=== PATIENT | male | born 1980 | race African-American/Black ===

== ENCOUNTER 2017-01-14 05:21 | Emergency (ER) | payer OTHER ==
[~2017-01-14] VITALS: Ht 177.8 cm; Wt 65.8 kg
--- NOTE | 2017-01-14 05:22 | NUR ---
to bed 2 bib paramedics c/o anxiety. n/v after smoking marijuana 40min [employer] vessel [employer]. pt appears very anxious, hyperventilating. pt [id number] no acute distress noted, resp even and unlabored. pending er md avitia.
--- NOTE | 2017-01-14 05:51 | NUR ---
noted pt vomiting, hyperventilating, very anxious. er md made aware with orders received. will medicate pt as ordered.
[2017-01-14] MEDS ORDERED: LORAZEPAM INJ 2 MG/ML VIAL ONE (05:52)
--- NOTE | 2017-01-14 05:56 | NUR ---
pt medicated by rn per er md order.
[2017-01-14] MEDS ORDERED: LORAZEPAM INJ 2 MG/ML VIAL IM ONE (06:00)
[2017-01-14] MEDS ORDERED: ONDANSETRON HCL/PF 4 MG/2 ML VIAL ONE (06:16)
--- NOTE | 2017-01-14 06:19 | NUR ---
pt ambulatory to the bathroom with steady gait noted.
[2017-01-14] MEDS ORDERED: ONDANSETRON HCL/PF 4 MG/2 ML VIAL IM ONE (06:30)
[2017-01-14] MEDS ORDERED: MAG HYDROX/AL HYDROX/SIMETH 30 ML UDC PO ONE (06:30)
--- NOTE | 2017-01-14 06:56 | NUR ---
report given to am shift jodie don.
--- NOTE | 2017-01-14 06:57 | NUR ---
REPORT RECEIVED FROM ED FOR RAMAN
[2017-01-14] MEDS ORDERED: MAG HYDROX/AL HYDROX/SIMETH 30 ML UDC ONE (07:08)
[2017-01-14] MEDS ORDERED: LORAZEPAM 1 MG TABLET ONE (07:35)
--- NOTE | 2017-01-14 07:56 | NUR ---
Patient discharged to home in stable condition. Written and verbal after care instructions given. Patient verbalizes understanding of instruction.
[2017-01-14 07:57] VITALS: BP 122/66
[2017-01-14] MEDS ORDERED: LORAZEPAM 1 MG TABLET PO ONE (08:00)
== END 2017-01-14 07:58 | disposition home or self-care (01) ==
LOC: ER 05:23
DX: F41.9 Anxiety disorder, unspecified (principal)
CPT/HCPCS: A4606; J2060; J2405; Z7610